=== PATIENT | male | born 1970 | race Caucasian/White ===

== ENCOUNTER 2018-07-06 20:02 | Emergency (ER) | payer OTHER ==
[2018-07-06] MEDS: NS 1,000 ML IV ×2 (20:40→21:49)
[2018-07-06] MEDS: METOPROLOL 5 MG/5 ML VIAL IV ×6 (20:40→21:27)
[2018-07-06 21:03] LABS: BASO % 0.4 % (0.0-1.0); EOS # 0.5 10^3/uL (0.0-0.50); EOS % 4.4 % (0.0-3.0); HEMATOCRIT 46.8 % (42.0-52.0); HEMOGLOBIN 16.3 g/dl (13.5-17.5); IMMATURE GRANULOCYTE % 1.1 % (0-3.0); LYMPH % 19.3 % (24.0-44.0); MEAN CORPUSCULAR HEMOGLOBIN 30.9 pg (27.0-33.0); MEAN CORPUSCULAR HGB CONC 34.8 g/dl (32.0-36.5); MEAN CORPUSCULAR VOLUME 88.8 fl (80.0-96.0); MONO # 0.9 10^3/uL (0.0-0.8); MONO % 8.5 % (0.0-5.0); NEUTROPHILS # 6.9 10^3/uL (1.8-7.7); NEUTROPHILS % 66.3 % (36.0-66.0); PLATELET COUNT, AUTOMATED 287 10^3/uL (150-450); RED BLOOD COUNT 5.27 10^6/uL (4.30-6.10); RED CELL DISTRIBUTION WIDTH 12.6 % (11.5-14.5); WHITE BLOOD COUNT 10.4 10^3/uL (4.0-10.0)
[2018-07-06 21:37] LABS: ANION GAP 11 MEQ/L (8-16); BLOOD UREA NITROGEN 15 MG/DL (7-18); CALCIUM LEVEL 8.2 MG/DL (8.5-10.1); CARBON DIOXIDE LEVEL 23 MEQ/L (21-32); CHLORIDE LEVEL 106 MEQ/L (98-107); CPK CREATINE PHOSPHOKINASE 167 U/L (39-308); CREATININE FOR GFR 1.23 MG/DL (0.70-1.30); ETHYL ALCOHOL (ETHANOL) 0.108 % (0.000-0.010); FREE T4 0.98 NG/DL (0.76-1.46); GLOMERULAR FILTRATION RATE > 60.0 (>60); GLUCOSE, FASTING 104 MG/DL (70-100); MAGNESIUM LEVEL 2.4 MG/DL (1.8-2.4); MB/CK RELATIVE INDEX 1.56 (< OR =4); SODIUM LEVEL 140 MEQ/L (136-145); TROPONIN I 0.02 NG/ML (< 0.10)
[2018-07-06] MEDS: ONDANSETRON 4MG/2ML VIAL (J2405) IV (21:48)
[2018-07-06] MEDS: PROPOFOL 200 MG/20 ML VIAL IV ×2 (21:57→22:18)
[2018-07-06] MEDS ORDERED: AMIODARONE 150MG/3ML INJ (J0282) As Ordered (22:03)
[2018-07-06] MEDS: AMIODARONE HCL 150 MG in APPROPRIATE DILUENT 1 EA IV (22:04)
[2018-07-06] MEDS: DIGOXIN INJ 0.5 MG/2 ML AMP (J1160) IV (22:10)
== END 2018-07-06 23:43 | disposition home or self-care (01) ==
LOC: M ED 20:02
DX: I48.91 Unspecified atrial fibrillation (principal); Z79.899 Other long term (current) drug therapy; Z79.82 Long term (current) use of aspirin
CPT/HCPCS: J2405